=== PATIENT | female | born 1980 | race Caucasian/White ===

== ENCOUNTER 2017-02-16 18:09 | Emergency (ER) | payer OTHER ==
--- NOTE | ~2017-02-16 | CR72 ---
[facility] A Service of [facility] RADIOLOGY TEXT RESULTS PATIENT: HERNANDEZ MCCLAIN LOCATION: SED : 84 UNIT #: [id number] AGE: [address]: Tim Prince PAC SEX: F ORDER DR: [id number] [place] [id number] E MR#: [id number] Acc #: [id number] NAME: HERNANDEZ MCCLAIN : 1980 SEX: F STUDY DATE/TIME: 02/16/2017 19:03 UNIT: SED ROOM: STUDY DESCRIPTION: CR Chest Single View Portable Attending Physician: Tim Prince P.A.-C. Ordering Physician: Tim Prince P.A.-C. Primary Care Physician: Regis Mohan M.D. MEDICAL IMAGING REPORT This report is preliminary unless electronic signature is present. EXAM Portable chest, 02/16 INDICATION Shortness of air and chest pain and pressure x2 days. COMPARISON 03/31/2016 FINDINGS A single AP portable view of the chest shows both lungs to be clear. The heart is normal in size. The mediastinal contour is normal. No significant bone abnormalities are seen. IMPRESSION Normal portable chest. Dictated by... Regis Martinez Jr., M.D. THIS IS AN ELECTRONICALLY VERIFIED REPORT Regis Martinez Jr., M.D. at 02/19/2017 4:23 PM PELON/holly TD: 02/17/2017 05:16 JOB #: [id number] MEDICAL IMAGING REPORT [facility] A Service of [facility] RADIOLOGY TEXT RESULTS PATIENT: HERNANDEZ MCCLAIN LOCATION: SED : [birth year] UNIT #: [id number] AGE: [address]: Tim Prince PAC SEX: F ORDER DR: Page 1 of 1
--- NOTE | ~2017-02-16 | EKG ---
PATIENT: HERNANDEZ MCCLAIN UNIT #: [id number] Ventricular Rate: 85 BPM Atrial Rate: 85 BPM P-R Interval: 144 ms QRS Duration: 84 ms Q-T Interval: 348 ms QTC Calculation(Bezet): 414 ms P [place]: 53 degrees Calculated R [place]: 10 degrees Calculated T [place]: 22 degrees Diagnosis Line: Normal sinus rhythm Diagnosis Line: Normal ECG Diagnosis Line: When compared with ECG of 30-MAR-2016 23:35, Diagnosis Line: No significant change was found Diagnosis Line: Confirmed by NAVYA MARION MD ([id number]) on Diagnosis Line: 02/18/2017 3:24:00 PM INTERPRETING MD: DONI VELARDE
[~2017-02-16 18:09] MED LIST: ADVIL PM CAPLE1 EACH PO; ADVIL200 M2; ALPRAZOLAM PO; ASPIRIN81 M1 PO; ATARAX; ATARAX PO; BENZONATATE PO; BIRTH CONTROL PILL; FLEXERIL10 MG PO; KLONOPIN0.5 MG PO; MOTRIN PM CAPL1 EACH PO; MOTRIN400 M1 PO; MOTRIN400 MG PO; MULTI-DAY VITAM1 TAB PO; NO MEDICATIONS; OSTEO BI-FLEX1 EAC1 PO; PREDNISONE PO; PRILOSEC20 MG PO; VISTARIL PO
[2017-02-16 19:01] LABS: BASOPHIL# 0.1 X10e3 (0-0.3); EOSINOPHIL# 0.1 X10e3 (0-0.7); EOSINOPHIL% 1.7 % (0.0-7.0); HEMATOCRIT 37.7 % (35.0-45.0); HEMOGLOBIN 12.6 gm/dL (12.0-16.0); LYMPHOCYTE# 1.6 X10e3 (1.0-3.5); LYMPHOCYTE% 18.4 % (17.0-45.0); MEAN CORPUSCULAR HEMOGLOBIN 29.2 PG (28-34); MEAN CORPUSCULAR HGB CONC 33.5 g/dL (30-36); MEAN PLATELET VOLUME 7.6 FL (6.5-11.5); MONOCYTE# 0.8 X10e3 (0-1.0); MONOCYTE% 9.5 % (3.0-12.0); NEUTROPHIL# 6.1 X10e3 (1.5-7.1); NEUTROPHIL% 69.4 % (40-75); PLATELET COUNT 390 X10e3 (140-420); RED BLOOD COUNT 4.33 X10e (3.90-5.30); RED CELL DISTRIBUTION WIDTH 13.2 % (11.0-15.5); WHITE BLOOD COUNT 8.8 X10e3 (4.0-10.5)
[2017-02-16 19:02] LABS: DIFF IND NO
[2017-02-16 19:15] LABS: POC - CKMB <1.0 ng/mL (0.0-7.9); POC - TROPONIN <0.05 ng/mL (<=0.05)
[2017-02-16 19:20] LABS: ALBUMIN SERUM 3.9 g/dL (3.5-5.0); ALKALINE PHOSPHATASE 89 U/L (32-92); ALT (SGPT) 21 U/L (10-40); AST (SGOT) 18 U/L (10-42); BILIRUBIN, DIRECT <0.1 mg/dL (0.0-0.2); BILIRUBIN,INDIRECT 0.2 mg/dL (0.0-0.9); BILIRUBIN,TOTAL 0.3 mg/dL (0.2-2.0); BLOOD UREA NITROGEN 9 mg/dL (9-23); CALCIUM SERUM 8.9 mg/dL (8.4-10.2); CARBON DIOXIDE 28 mmol/L (22-31); CHLORIDE 106 mmol/L (100-111); CREATININE SERUM 0.6 mg/dL (0.6-1.4); GLOM FILT RATE Estimated 118.1 mL/min (>60); GLUCOSE FASTING 75 mg/dL (70-110); MAGNESIUM 2.1 mg/dL (1.6-3.0); POTASSIUM 3.8 mmol/L (3.5-5.1); PROTEIN TOTAL SERUM 7.6 g/dL (6.0-8.3); SODIUM 139 mmol/L (135-145)
[2017-02-16 20:19] LABS: POC - CKMB <1.0 ng/mL (0.0-7.9)
[2017-02-16 20:20] LABS: POC - TROPONIN <0.05 ng/mL (<=0.05)
[2017-02-16 20:48] LABS: POC - CKMB <1.0 ng/mL (0.0-7.9); POC - TROPONIN <0.05 ng/mL (<=0.05)
[2017-02-16] MEDS ORDERED: PAXIL10 MG PO (21:14)
== END 2017-02-16 21:15 | disposition home or self-care (01) ==
LOC: SED 18:09
PROVIDERS: Physician Assistant
DX: R07.89 Other chest pain (principal); K21.9 Gastro-esophageal reflux disease without esophagitis; F41.9 Anxiety disorder, unspecified
CPT/HCPCS: 36415; 71010; 80048; 80076; 82553; 83735; 84484; 85025; 93005; 99284

== ENCOUNTER 2017-06-02 18:31 | Emergency (ER) | payer OTHER ==
[~2017-06-02] VITALS: Ht 144.8 cm; Wt 72.6 kg
--- NOTE | ~2017-06-02 | EKG ---
PATIENT: HERNANDEZ MCCLAIN UNIT #: [id number] Ventricular Rate: 92 BPM Atrial Rate: 92 BPM P-R Interval: 142 ms QRS Duration: 96 ms Q-T Interval: 352 ms QTC Calculation(Bezet): 435 ms P [place]: 53 degrees Calculated R [place]: 8 degrees Calculated T [place]: 18 degrees Diagnosis Line: Normal sinus rhythm Diagnosis Line: Normal ECG Diagnosis Line: When compared with ECG of 16-FEB-2017 18:15, Diagnosis Line: No significant change was found Diagnosis Line: Confirmed by VERONICA WALTERS MD ([id number]) on 06/04/2017 Diagnosis Line: 7:33:54 PM INTERPRETING MD: ROMEO VELARDE
--- NOTE | ~2017-06-02 | CR63 ---
[facility] A Service of [facility] RADIOLOGY TEXT RESULTS PATIENT: HERNANDEZ MCCLAIN LOCATION: SED : 84 UNIT #: [id number] AGE: [address]: Cherelle Ocasio MD SEX: F ORDER DR: [id number] [address] [address] [id number] E MR#: [id number] Acc #: [id number] NAME: HERNANDEZ MCCLAIN : 1980 SEX: F STUDY DATE/TIME: 06/02/2017 19:20 UNIT: SED ROOM: STUDY DESCRIPTION: CR Chest 2 View Attending Physician: Cherelle Ocasio M.D. Ordering Physician: Cherelle Ocasio M.D. Primary Care Physician: No Primary Care Physician MEDICAL IMAGING REPORT This report is preliminary unless electronic signature is present. EXAM Two views of the chest. COMPARISON 02/16/2017, 03/31/2016 and 12/19/2015. HISTORY 37-year-old female with chest pain and tachycardia today. FINDINGS No evidence of pneumothorax, pleural effusion or acute airspace disease. Stable appearance of bronchovascular structures in the left lung base. There is poor inspiratory effort with crowding of bronchovascular structures bilaterally. Cardiomediastinal silhouette is within normal limits. No evidence of pneumonia. IMPRESSION No acute radiographic abnormality of the chest. Normal heart size. Dictated by... Truong Matthew M.D. THIS IS AN ELECTRONICALLY VERIFIED REPORT Truong Matthew M.D. at 06/05/2017 10:43 AM BLM/gz TD: 06/03/2017 10:15 JOB #: [id number] MEDICAL IMAGING REPORT [facility] A Service [facility] RADIOLOGY TEXT RESULTS PATIENT: HERNANDEZ MCCLAIN LOCATION: SED : 82 UNIT #: [id number] AGE: [address]: Cherelle Ocasio MD SEX: F ORDER DR: Page 1 of 1
[~2017-06-02 18:31] MED LIST changes: +PAXIL10 MG PO
== END 2017-06-02 20:15 | disposition home or self-care (01) ==
LOC: SED 18:31
DX: F41.0 Panic disorder [episodic paroxysmal anxiety] (principal); Z79.899 Other long term (current) drug therapy
CPT/HCPCS: 71020; 93005; 99284